=== PATIENT | male | born 1970 | race Caucasian/White ===

== ENCOUNTER 2022-10-21 11:29 | Emergency (ER) | payer OTHER, SELFPAY ==
[2022-10-21 11:38] VITALS: BP 116/83; PULSE 83; RESP 16; TEMP 36.7; O2SAT 96; BMI 21.5
[2022-10-21 12:08] LABS: Appearance Urine Clear (Clear); Bilirubin Urine Negative (Negative); Blood Urine Trace-lysed (Negative); Color Urine Yellow (Yellow); Glucose Urine Negative (Negative); Ketones Urine Negative (Negative); Leukocyte Esterase Urine Negative (Negative); Nitrite Urine Negative (Negative); Protein Urine Negative (Negative); Specific Gravity Urine >= 1.030 (1.000-1.030); Urobilinogen Urine 0.2 (0.2-1.0)
--- NOTE | 2022-10-21 12:20 | ED_ITS ---
HPI - Male Genitourinary General Date Seen: 10/21/22 Chief complaint: Urogenital Problems, Male Stated complaint: Groin pain Time Seen by Provider: 10/21/22 11:36 Source: patient Mode of arrival: ambulatory Limitations: no limitations History of Present Illness HPI Narrative: Patient is a 52-year-old gentleman who presents here with lower abdominal perineal discomfort, this is been for the last 2 weeks, he had some pretty significant constipation, after he underwent cervical fusion, and had a large bowel movement, which she tells me basically tore him wide open. Any bleeding associated with this, and his pain actually improved with prednisone that he was on for his right arm. He went to [facility] ER yesterday, as he was very worried about this there that he had a CT scan and blood tests and told him that everything was normal, he was there for approximately 8 hours, he is very anxious about this, came here for a 2nd opinion over this, denies any significant bulges, dysuria frequency fevers chills or sweats, eating and drinking otherwise normal, No history of previous STDs, testicular issues, Related Data Allergies Allergy/AdvReac Type Severity Reaction Status Date / Time No Known Drug Allergies Allergy Verified 10/21/22 11:37 Review of Systems Status of ROS: Reports: 10 or more systems reviewed and unremarkable except as noted in History and below [facility] Social History Smoking Status: Current every day smoker What tobacco products do you use: cigarettes Smoking packs per day: 0.25 Smoking cigarettes per day: 5.0 Do you use any of these nicotine containing products: None Second hand tobacco smoke exposure: No How often do you have a drink containing alcohol: never AUDIT-C Alcohol total score: 0 Non-prescribed substance use: denies use service: No Exam Narrative: Exam Narrative: Patient is seen in room 4 he is in no apparent distress, his abdomen is scaphoid, there is absolutely no swelling noted or tenderness noted on his abdomen there is no organomegaly, he does not have any hernias noted in his groin all region testicles both descended, circumcised male, his pain is actually posterior, between his scrotum and his anus, more on the left than the right, the radiates up to coming off the pelvic insertion of his the hamstrings on the left side, rectal exam is done, this shows a prostate is mildly boggy and mildly tender, testicles are both nontender, epididymis is nontender, Able to review the CT from yesterday from [facility] at least the report, this showed a very small mild pericardial effusion, no other hernia. wbc count elevated at 18, crp and basic normal Const: Vital Signs, click to edit/add: Vital Signs - 24 hr 10/21/22 11:38 Temperature 98.0 F Pulse Rate [Pulse Oximeter] 83 Respiratory Rate 16 Blood Pressure [Le ft Upper Arm] 116/83 Pulse Oximetry 96 Oxygen Delivery Me thod Room Air Course Course Hospital Course: Discussed with the patient the CT scan laboratory tests and urinalysis the from yesterday and today are all negative, I believe this is more like a muscle pull, I do not see any evidence of an acute rupture, or any other issue. I would let him watch this over time and follow-up with regular physician, course he could follow-up with GI physician as needed, he was very comfortable this Vital Signs Vital signs: Initial Vital Signs Temperature 98.0 F 10/21/22 11:38 Temperature Source Temporal Artery Scan 10/21/22 11:38 Pulse Rate 83 10/21/22 11:38 Pulse Rhythm Regular 10/21/22 11:38 Pulse Strength 3+ Normal 10/21/22 11:38 Respiratory Rate 16 10/21/22 11:38 Blood Pressure 116/83 10/21/22 11:38 Blood Pressure Mean 94 10/21/22 11:38 Blood Pressure Position Sitting 10/21/22 11:38 Pulse Oximetry 96 10/21/22 11:38 Oxygen Delivery Method Room Air 10/21/22 11:38 Vital Signs Temperature 98.0 F 10/21/22 11:38 Pulse Rate 83 10/21/22 11:38 Respiratory Rate 16 10/21/22 11:38 Blood Pressure 116/83 10/21/22 11:38 Pulse Oximetry 96 10/21/22 11:38 Oxygen Delivery Method Room Air 10/21/22 11:38 Temperature 98.0 F 10/21/22 11:38 Pulse Rate 83 10/21/22 11:38 Respiratory Rate 16 10/21/22 11:38 Blood Pressure 116/83 10/21/22 11:38 Pulse Oximetry 96 10/21/22 11:38 Oxygen Delivery Method Room Air 10/21/22 11:38 MDM - Male Genitourinary MDM Narrative Medical decision making narrative: During this evaluation of this patient I considered multiple differential diagnosis is which included the life-threatening such as appendicitis, aortic aneurysm, mesenteric ischemia, bowel perforation, volvulus, and bowel obstruction. Other differential diagnosis is include but are not limited to cholecystitis, pancreatitis, hepatitis, gastritis, GERD, diverticulitis, peptic ulcer disease, pyelonephritis/UTI, renal colic/stone, testicular torsion as well as other acute scrotal processes, inflammatory bowel disease, as well as other etiologies Lab Data Labs: Lab Results 10/21/22 Range/Units 12:00 Urine Color Yellow (Yellow) Urine Appearance Clear (Clear) Urine pH 6.0 (5.0-8.5) Ur Specific [place] >= 1.030 (1.000-1.030) Urine Protein Negative (Negative) Urine Glucose (UA) Negative (Negative) Urine Ketones Negative (Negative) Urine Blood Trace-lysed A (Negative) Urine Nitrite Negative (Negative) Urine Bilirubin Negative (Negative) Urine Urobilinogen 0.2 (0.2-1.0) Ur Leukocyte Esterase Negative (Negative) Urine RBC 2-5 A (0-2) Urine WBC 2-5 (0-5) Ur Squamous Epith Cells Few (None-Few) Urine Bacteria None (None) Discharge Plan Discharge Clinical Impression: Complaint of pelvic pain Patient Disposition: Home, Self-Care Condition: Stable Instructions: Pelvic Pain in Men (ED), Heat Pack Application (ED) Additional Instructions: Reassured you that I do not see any evidence of any significant abnormality, or your urinalysis is benign I went through the blood test yesterday, the CT scan showed no acute abnormality the white count was elevated but in the setting of using prednisone this often occurs. I would reassure you have you follow-up with primary care in approximately a week, increasing abdominal pain fevers chills sweats or will problems with bowel movements then please follow-up. Follow Up/Referrals: Provider,Not a Local [Primary Care Provider] - Stand Alone Forms: [employer] Info Instructions
[2022-10-21 12:39] LABS: Squamous Epithelial Cell Urine Few (None-Few)
== END 2022-10-21 13:20 | disposition home or self-care (01) ==
PROVIDERS: Emergency Provider Family Medicine
DX: R10.2 Pelvic and perineal pain (principal)
CPT/HCPCS: 81001; 99283